=== PATIENT | male | born 1975 | race Native Hawaiian/Other Pacific Islander ===

== ENCOUNTER 2021-01-12 19:20 | Emergency (ER) | payer BC ==
[~2021-01-12] VITALS: Ht 177.8 cm; Wt 120.2 kg
[2021-01-12 22:40] VITALS: BP 135/81; TEMP 98.1
== END 2021-01-12 22:45 | disposition home or self-care (01) ==
LOC: ED 19:20
PROC: 0HQGXZZ Repair Left Hand Skin, External Approach (ICD-10-PCS; principal; 2021-01-12)
DX: S61.012A Laceration without foreign body of left thumb without damage to nail, initial encounter (principal); S60.012A Contusion of left thumb without damage to nail, initial encounter; W26.0XXA Contact with knife, initial encounter; Y92.89 Other specified places as the place of occurrence of the external cause
CPT/HCPCS: 96372; 99283; J0696; J2001